=== PATIENT | male | born 1970 ===

== ENCOUNTER 2017-07-04 09:26 | Emergency (ER) | payer OTHER ==
[2017-07-04 09:39] VITALS: TEMP 97.7
--- NOTE | 2017-07-04 10:57 | C.PDOC ---
History Of Present Illness 46yo male with history of asthma, Hepatitis C, drug abuse and currently on methadone, presents with complaints of atraumatic right shoulder pain, present for the past 3 days. Patient states he woke up with the pain and states it is 10 /10. Patient reports he took Tylenol with Codeine for his pain with no relief. Patient states he has to hold his arm against his body for support. He denies any headache, fever, chills, nausea, vomiting and offers no other medical complaints. Time Seen by Provider: 07/04/17 09:40 Chief Complaint (Nursing): Upper Extremity Problem/Injury History Per: Patient History/Exam Limitations: no limitations Onset/Duration Of Symptoms: Days (3) Current Symptoms Are (Timing): Still Present Quality: "Pain" Pain Scale Rating Of: 10 Exacerbating Factor(s): Strenuous Use Of Affected Area Past Medical History Reviewed: Historical Data, Nursing Documentation, Vital Signs Vital Signs: Last Vital Signs Temp 97.7 F 07/04/17 09:34 Pulse 88 07/04/17 11:17 Resp 17 07/04/17 11:17 BP 124/75 07/04/17 11:17 Pulse Ox 98 07/04/17 11:17 - Medical History PMH: Asthma Surgical History: No Surg Hx Family History: States: No Known Family Hx - Social History Hx Alcohol Use: No Hx Substance Use: No - Immunization History Hx Tetanus Toxoid Vaccination: Yes Hx Influenza Vaccination: Yes Hx Pneumococcal Vaccination: No Review Of Systems Constitutional: Negative for: Fever, Chills Gastrointestinal: Negative for: Nausea, Vomiting Musculoskeletal: Positive for: Shoulder Pain (right) Neurological: Negative for: Headache Physical Exam - Physical Exam Appears: Non-toxic Skin: Warm, Dry Neck: Supple Cardiovascular: Rhythm Regular Respiratory: Normal Breath Sounds Extremity: No Normal ROM (patient has decreased ROM of right upper extremity at the shoulder due to pain; patient noted to favor right arm and has it splinted against his body.), Tenderness (tenderness to lateral right shoulder; no bony tenderness of clavicle noted. no AC joint tenderness or deformity noted.), Capillary Refill (< 2 seconds; right upper extremity neurovascularly intact), Other (no ecchymosis noted to right shoulder) ED Course And Treatment O2 Sat by Pulse Oximetry: 97 (RA) Pulse Ox Interpretation: Normal Medical Decision Making Medical Decision Making: Impression: 46y/o male with atraumatic right shoulder pain for 3 days Plan: -- XR Right shoulder -- Toradol IM 1059 Patient reports mild relief of pain with Toradol. XR's reviewed by provider and indicate no fractures or dislocations. Patient to be provided with arm sling, prescription for Motrin to take as needed for pain and instructions to follow up as outpatient with orthopedics. Patient stable for discharge home. Disposition Counseled Patient/Family Regarding: Studies Performed, Diagnosis, Need For Followup, Rx Given - Disposition Referrals: Shaik Ken MD [Primary Care Provider] - Tasneem Kowalski MD [Staff Provider] - Disposition: HOME/ ROUTINE Disposition Time: 11:00 Condition: STABLE Prescriptions: Ibuprofen [Motrin] 600 mg PO TID #15 tab Instructions: [facility] (ED) Forms: [facility] ([place]), General Discharge Instructions - POA Present On Arrival: None - Clinical Impression Clinical Impression: Muscle strain, Shoulder pain, right - Scribe Statement The provider has reviewed the documentation as recorded by the Belen Timmons Provider Attestation All medical record entries made by the Belen were at my direction and personally dictated by me. I have reviewed the chart and agree that the record accurately reflects my personal performance of the history, physical exam, medical decision making, and the department course for this patient. I have also personally directed, reviewed, and agree with the discharge instructions and disposition.
[2017-07-04 11:18] VITALS: BP 124/75; PULSE 88; RESP 17
[2017-07-04 11:20] VITALS: O2SAT 97
--- NOTE | 2017-07-04 13:16 | RAD ---
PROCEDURE: Radiographs of the Right Shoulder HISTORY: pain, no trauma COMPARISON: No prior. FINDINGS: BONES: No fractures appreciated. There is no destructive bony lesion identified. JOINTS: Normal. Glenohumeral and acromioclavicular joints preserved. No osteoarthritis. SOFT TISSUES: Normal. OTHER FINDINGS: None. IMPRESSION: Normal radiographs of the right shoulder.
== END 2017-07-04 11:19 | disposition home or self-care (01) ==
LOC: C.ER 09:26 → SUPCPDRO 09:26 → C.ER 11:19
DX: S46.911A Strain of unspecified muscle, fascia and tendon at shoulder and upper arm level, right arm, initial encounter (principal); X58.XXXA Exposure to other specified factors, initial encounter; Y93.89 Activity, other specified; Y92.89 Other specified places as the place of occurrence of the external cause
CPT/HCPCS: 73030; 96372; 99285; J1885